=== PATIENT | female | born 1955 | race Caucasian/White ===

== ENCOUNTER 2018-07-28 21:28 | Emergency (ER) | payer OTHER ==
[~2018-07-28] VITALS: Ht 160 cm; Wt 52.0 kg
[2018-07-28 21:34] VITALS: Ht 160 cm; Wt 52.0 kg
[2018-07-28] MEDS ORDERED: ONDANSETRON 4 MG INJ IV STA (21:37)
[2018-07-28] MEDS ORDERED: SOD CHLORIDE 0.9% 1,000 ML IV STA (21:37)
[2018-07-28] MEDS ORDERED: MECLIZINE 12.5 MG TAB PO ONE (22:00)
[2018-07-28 23:12] VITALS: BP 138/90
[2018-07-28] MEDS ORDERED: METO25TA4 PO (23:34)
[2018-07-28] MEDS ORDERED: LOSA25TA12 PO (23:34)
[2018-07-28] MEDS ORDERED: MECL-77 PO (23:41)
[2018-07-28] MEDS ORDERED: morphine 2 MG INJ IV ONE (23:59)
[2018-07-29] MEDS ORDERED: KETOROLAC 30 MG INJ IV ONE
[2018-07-29] MEDS ORDERED: ONDANSETRON 4 MG INJ IV ONE
[2018-07-29 01:49] VITALS: PULSE 47; RESP 16
--- NOTE | 2018-08-05 12:11 | ERD ---
ER Documentation Chief Complaint Chief Complaint bib ra from home for dizziness, patient took metoprolol at home, HPI This is a 62-year-old female who presents to the emergency department for dizziness. Patient indicated she felt as though the room is spinning around her. The patient indicated she thought her blood pressure was elevated so she took metoprolol. She took this just prior to arrival. She denied a headache. She denied any feeling as though she was going to pass out there is no complete transient loss of consciousness. She felt nauseous but did not experience any emesis. Her symptoms were worse when she was standing and better when she was lying supine. She denies any chest pain. No shortness of breath at rest or exertion. ROS All systems reviewed and are negative except as per history of present illness. Medications Home Meds Active Scripts Meclizine Hcl* (Meclizine Hcl*) 25 Mg Tablet, 25 MG PO Q8H PRN for DIZZINESS, #20 TAB Prov:YISEL PURCELL MD 07/28/18 Reported Medications Losartan Potassium* (Losartan Potassium*) 25 Mg Tablet, 25 MG PO DAILY, TAB 07/28/18 Metoprolol Tartrate* (Lopressor*) 25 Mg Tablet, 25 MG PO BID, #60 TAB 07/28/18 Allergies Allergies: Coded Allergies: Penicillins (Unverified Allergy, Unknown, HIVES, SWELLING, 07/28/18) codeine (Unverified Adverse Reaction, Unknown, N/V, 07/28/18) PMhx/Soc Medical and Surgical Hx: pt denies Surgical Hx History of Surgery: No Hx Neurological Disorder: No Hx Respiratory Disorders: No Hx Cardiac Disorders: Yes (HTN) Hx Psychiatric Problems: No Hx Miscellaneous Medical Probl: No Hx Alcohol Use: No Hx Substance Use: No Hx Tobacco Use: No Smoking Status: Never smoker Physical Exam Physical Exam Constitutional:Well-developed. Well-nourished. HEENT:Normocephalic. Atraumatic.Pupils were equal round reactive to light. Moist mucous membranes. Neck: No nuchal rigidity. No lymphadenopathy. No posterior cervical spine tenderness or step-offs. Respiratory: Not using accessory muscles of respiration.Lungs were clear to auscultation bilaterally. No rhonchi. No rales. No wheezing. Cardiovascular: Regular rate regular rhythm.No murmurs. No rubs were appreciated.S1, S2 normal. Distal pulses are palpable 2+ bilaterally. GI: Abdomen was soft. Nontender. Non Distended. No pulsatile abdominal masses or bruits. No rebound. No guarding. Bowel sounds were present and normal. Muscle skeletal: Full range of motion of both the upper and lower extremities bilaterally.Normal muscle tone.No assymetrical calf tenderness or swelling. Skin: No petechia, no purpura. No lesions on the palms or the soles of the feet. No maculopapular rash. NEURO: Patient was alert, awake, orientated x3.No facial droop. Gait observed and normal with no ataxia.Speech had regular rate and rhythm. No focal neurological deficits. Fatigable nystagmus Results 24 hrs Laboratory Tests Test 07/28/18 22:02 07/28/18 22:32 07/28/18 22:49 White Blood Count 6.1 10^3/ul Red Blood Count 4.91 10^6/ul Hemoglobin 15.4 g/dl Hematocrit 45.0 % Mean Corpuscular Volume 91.6 fl Mean Corpuscular Hemoglobin 31.4 pg Mean Corpuscular 34.2 g/dl Hemoglobin Concent Red Cell Distribution Width 12.4 % Platelet Count 262 10^3/UL Mean Platelet Volume 10.9 fl Immature Granulocytes % 0.200 % Neutrophils % 56.2 % Lymphocytes % 33.7 % Monocytes % 7.1 % Eosinophils % 2.1 % Basophils % 0.7 % Nucleated Red Blood Cells % 0.0 /100WBC Immature Granulocytes # 0.010 10^3/ul Neutrophils # 3.4 10^3/ul Lymphocytes # 2.1 10^3/ul Monocytes # 0.4 10^3/ul Eosinophils # 0.1 10^3/ul Basophils # 0.0 10^3/ul Nucleated Red Blood Cells # 0.0 10^3/ul Sodium Level 138 mmol/L Potassium Level 4.1 mmol/L Chloride Level 99 mmol/L Carbon Dioxide Level 30 mmol/L Anion Gap 9 Blood Urea Nitrogen 12 mg/dl Creatinine 0.97 mg/dl Est Glomerular Filtrat 58 mL/min Rate mL/min Glucose Level 106 mg/dl Calcium Level 10.1 mg/dl Total Bilirubin 0.5 mg/dl Direct Bilirubin 0.00 mg/dl Indirect Bilirubin 0.5 mg/dl Aspartate Amino 24 IU/L Transf (AST/SGOT) Alanine 22 IU/L Aminotransferase (ALT/SGPT) Alkaline Phosphatase 72 IU/L Troponin I < 0.012 ng/ml Total Protein 7.6 g/dl Albumin 4.2 g/dl Globulin 3.40 g/dl Albumin/Globulin Ratio 1.23 Prothrombin Time 13.2 Sec Prothrombin Time Ratio 1.0 INR International 0.99 Normalized Ratio Activated Partial Thromboplast 27.6 Sec Time Urine Color YELLOW Urine Clarity SLIGHTLY CLOUDY Urine pH 5.0 Urine Specific [place] 1.023 Urine Ketones TRACE mg/dL Urine Nitrite NEGATIVE mg/dL Urine Bilirubin NEGATIVE mg/dL Urine Urobilinogen NEGATIVE mg/dL Urine Leukocyte Esterase NEGATIVE Aleisha/ul Urine Microscopic RBC 1 /HPF Urine Microscopic WBC 2 /HPF Urine Squamous Epithelial Cells FEW /HPF Urine Mucus FEW /HPF Urine Hemoglobin NEGATIVE mg/dL Urine Glucose NEGATIVE mg/dL Urine Total Protein 1+ mg/dl Current Medications Medications Dose Sig/Miriam Start Time Status Last (Trade) Ordered Route PRN Stop Time Admin Dose Reason Admin Sodium 1,000 ml @ Q1H STAT 07/28/18 DC 07/28/18 Chloride 1,000 mls/hr IV 21:37 22:45 07/28/18 22:36 Meclizine 25 mg ONCE ONCE 07/28/18 DC 07/28/18 HCl PO 22:00 22:45 (Antivert) 07/28/18 22:01 Ondansetron 4 mg ONCE STAT 07/28/18 DC 07/28/18 HCl (Zofran IV 21:37 22:45 Inj) 07/28/18 21:40 Morphine 2 mg ONCE ONCE 07/28/18 DC 07/29/18 Sulfate IV 23:59 00:08 (morphine) 07/29/18 00:00 Ondansetron 4 mg ONCE ONCE 07/29/18 DC 07/29/18 HCl (Zofran IV 00:00 00:08 Inj) 07/29/18 00:01 Ketorolac 30 mg ONCE ONCE 07/29/18 DC 07/29/18 Tromethamine IV 00:00 00:07 (Toradol) 07/29/18 00:01 [facility] This patient was seen and evaluated by myself. The patient presented to the emergency department complaining of dizziness. My differential diagnosis included but was not limited to hypovolemia, myocardial infarction, pulmonary embolism, hypoglycemia, hypoxia, anemia, vasovagal episode, hypothyroidism, anxiety, peripheral or central vertigo. The patient was placed on a rn cardiac, continuous pulse oximetry and IV access established by nursing staff. 12 Lead EKG tracing ordered and reviewed by myself showed: Sinus bradycardia of 51 bpm and no arrhythmia. AR interval normal. QRS duration normal. No ST segment elevation No ST segment depression. No changes consistent with acute ischemia. The patient is given Antivert. This did not improve her symptoms. He was now complaining of a headache. She said it was bandlike. She stated this is not the worst headache of her life. Therefore at this time I did obtain a CT scan of her head which is found to be normal. She received intravenous morphine Zofran and Toradol with complete resolution of her headache. I felt there is likely result of vertigo and that she could be safely discharged home. Departure Diagnosis: Primary Impression: Dizziness Condition: Fair Patient Instructions: Dizziness (Vertigo) and Balance Problems: Diagnostic Tests YISEL PURCELL MD Aug 05, 2018 12:08
== END 2018-07-29 04:12 | disposition home or self-care (01) ==
LOC: E/R 21:28
DX: R42 Dizziness and giddiness (principal); I10 Essential (primary) hypertension
CPT/HCPCS: 70450; 80053; 81001; 84484; 85025; 85610; 85730; 93005; 96361; 96374; 96375; 96376; 99285; J1885; J2270; J2405; J7030